=== PATIENT | female | born 1965 | race Caucasian/White ===

== ENCOUNTER 2017-11-16 07:30 | Outpatient (CLI) | payer OTHER ==
[2017-11-16 10:24] LABS: BASOPHILS % (AUTO) 0.6 %; EOSINOPHILS # (AUTO) 0.3 10^3/uL (0.0-0.7); EOSINOPHILS % (AUTO) 4.6 %; HGB - HEMOGLOBIN 13.8 g/dL (12.0-16.0); LYMPHOCYTES # (AUTO) 2.3 10^3/uL (1.5-3.5); LYMPHOCYTES % (AUTO) 38.9 %; MEAN CORPUSCULAR HEMOGLOBIN 30.4 pg (27.0-31.0); MEAN CORPUSCULAR HGB CONC 34.5 g/dL (32.0-36.0); MEAN CORPUSCULAR VOLUME 88.3 fL (81.0-99.0); MEAN PLATELET VOLUME 8.5 fL (7.9-10.8); MONOCYTES # (AUTO) 0.5 10^3/uL (0.0-1.0); MONOCYTES % (AUTO) 8.1 %; NEUTROPHILS # (AUTO) 2.8 10^3/uL (1.5-6.6); NEUTROPHILS % (AUTO) 47.8 %; PLT - PLATELET COUNT 252 10^3/uL (130-450); RED BLOOD COUNT 4.55 10^6/uL (4.20-5.40); RED CELL DISTRIBUTION WIDTH 12.5 % (12.0-15.0); WHITE BLOOD COUNT 5.8 x10^3/uL (4.8-10.8)
[2017-11-16 10:45] LABS: ALBUMIN 4.8 g/dL (3.2-5.5); ALBUMIN/GLOBULIN RATIO 2.3 (1.0-2.2); ALKALINE PHOSPHATASE 67 IU/L (42-121); ALT ALANINE AMINOTRANSFERASE 23 IU/L (10-60); AST ASPARTATE AMINOTRANSFERASE 19 IU/L (10-42); BILIRUBIN,TOTAL 0.5 mg/dL (0.2-1.0); BUN - BLOOD UREA NITROGEN 14 mg/dL (6-20); CALCIUM 9.3 mg/dL (8.5-10.3); CARBON DIOXIDE - CO2 26 mmol/L (21-32); CHLORIDE 103 mmol/L (101-111); CHOL/HDL RATIO 3.4 (<4.4); CHOLESTEROL 208 mg/dL; CREATININE 0.5 mg/dL (0.4-1.0); GFR - MDRD 129 (>89); GLUCOSE 95 mg/dL (70-100); HDL CHOLESTEROL 62 mg/dL; LDL CHOLESTEROL,CALCULATED 130 mg/dL; LDL/HDL RATIO 2.1 (<4.4); SODIUM 137 mmol/L (135-145); TOTAL PROTEIN 6.9 g/dL (6.7-8.2); VLDL CHOLESTEROL 16 mg/dL
[2017-11-16 10:52] LABS: THYROID STIMULATING HORMONE 1.25 uIU/mL (0.34-5.60)
[2017-11-16 10:54] LABS: FREE T4 (FREE THYROXINE) 0.88 ng/dL (0.58-1.64)
[2017-11-16 10:58] LABS: FERRITIN 97.7 ng/mL (11.0-306.8); TOTAL T3 1.25 ng/mL (0.87-1.78)
[2017-11-16 11:01] LABS: HB2 TOTAL 15.1 g/dL; HEMOGLOBIN A1C 0.52 g/dL; HEMOGLOBIN A1C % 5.3 % (4.6-6.2)
[2017-11-26 14:51] LABS: T3 REVERSE 18 ng/dL (8-25)
== END 2017-11-16 07:31 | disposition home or self-care (01) ==
LOC: LAB.F 07:30
PROVIDERS: ATTEND Family Medicine
DX: Z00.00 Encounter for general adult medical examination without abnormal findings (principal); E03.9 Hypothyroidism, unspecified; R53.83 Other fatigue; E55.9 Vitamin D deficiency, unspecified
CPT/HCPCS: 36415; 80053; 80061; 82306; 82626; 82728; 83036; 83721; 84439; 84443; 84480; 84481; 84482; 85025

== ENCOUNTER 2024-03-27 08:00 | Outpatient (CLI) | payer BC, OTHER ==
--- NOTE | 2024-04-01 08:42 | XRAY Report ---
PROCEDURE: Toe(s) 2+V RT INDICATIONS: RIGHT TOE CONTUSION TECHNIQUE: 3 views of the fifth toe(s) acquired. COMPARISON: None. FINDINGS: Bones: Intra-articular fracture of the fifth proximal phalanx head. Soft tissues: No suspicious soft tissue densities. IMPRESSION: Intra-articular fracture of the fifth proximal phalanx head. Reviewed by: Elias Stoner MD on 04/01/2024 8:41 AM PDT Approved by: Elias Stoner MD on 04/01/2024 8:41 AM PDT Station ID: [id number]
== END 2024-03-27 23:59 | disposition home or self-care (01) ==
LOC: DI.S 08:00
PROVIDERS: ATTEND Emergency Medicine
DX: S90.121A Contusion of right lesser toe(s) without damage to nail, initial encounter (principal); S92.511A Displaced fracture of proximal phalanx of right lesser toe(s), initial encounter for closed fracture